=== PATIENT | female | born 1980 | race Caucasian/White ===

== ENCOUNTER → 2016-04-24 | Outpatient (CLI) | payer OTHER ==
[~2016-04-24] MED LIST: LIDO1CRE TOPICAL; LIDO1CRE8 TOPICAL; METO25TA3 PO; MS C30TA PO; OXYC-395 PO; SUMA50TA2 PO; TOPA100T11 PO
--- NOTE | 2016-04-24 10:53 | RADRPT ---
EXAM DATE/TIME: 04/24/2016 10:35 [facility] COMPARISON: No previous studies available for comparison. INDICATIONS : Evaluate for pneumonia, pneumothorax, or communicable disease. Pre op for neurostimulator insertion. MEDICAL HISTORY : Herniated disc. Fibromyalgia. SURGICAL HISTORY : Tubal ligation. Left ACL. ENCOUNTER: Initial ACUITY: 1 day PAIN SCORE: 0/10 LOCATION: chest FINDINGS: PA and lateral views of the chest demonstrate the lungs to be symmetrically aerated without evidence of mass, infiltrate or effusion. The cardiomediastinal contours are unremarkable. Osseous structure s are intact. CONCLUSION: No acute disease. Roger Echeverria MD FACR on April 24, 2016 at 10:51 Board Certified Radiologist. This report was verified electronically.
[2016-04-24 11:05] LABS: AUTOMATED NEUTROPHIL # 3.7 TH/MM3 (1.8-7.7); BASOPHIL % 0.6 % (0.0-2.0); EOSINOPHIL # 0.4 TH/MM3 (0-0.4); EOSINOPHIL % 5.7 % (0.0-4.0); HEMATOCRIT 43.8 % (35.0-46.0); HEMO FLAGS DIFF FINAL; LYMPH % 31.2 % (9.0-44.0); MEAN CELL VOLUME 95.7 FL (80.0-100.0); MEAN CORPUSCULAR HEMOGLOBIN 32.8 PG (27.0-34.0); MEAN CORPUSCULAR HGB CONC 34.3 % (32.0-36.0); MONO % 5.4 % (0.0-8.0); NEUT % 57.1 % (16.0-70.0); PLATELET COUNT 243 TH/MM3 (150-450); RED BLOOD COUNT 4.58 MIL/MM3 (4.00-5.30); RED CELL DISTRIBUTION WIDTH 13.3 % (11.6-17.2); WHITE BLOOD COUNT 6.5 TH/MM3 (4.0-11.0)
[2016-04-24 11:09] LABS: APTT (PATIENT) 27.5 SEC (24.3-30.1); PROTHROMBIN TIME - PATIENT 10.6 SEC (9.8-11.6)
[2016-04-24 11:24] LABS: BLOOD, URINE NEG (NEG); COMMENT (UR) CULT NOT INDICATED; CULTURE IF INDICATED CULT NOT INDICATED; GLUCOSE,URINE NEG (NEG); HYALINE CAST, URINE 1 /lpf (RARE); KETONE, URINE NEG (NEG); MUCUS URINE MANY /lpf (OCC); NITRITE,URINE NEG (NEG); SQUAMOUS EPITHELIAL CELL URINE 2 /hpf (0-5); URINE COLOR YELLOW (YELLW/STRAW)
[2016-04-24 11:30] LABS: ALKALINE PHOSPHATASE 64 U/L (45-117); ALT (GPT) 14 U/L (10-53); ANION GAP 7 MEQ/L (5-15); AST (GOT) 8 U/L (15-37); BICARBONATE 27.2 MEQ/L (21.0-32.0); BLOOD UREA NITROGEN 9 MG/DL (7-18); CHLORIDE 105 MEQ/L (98-107); GLOMERULAR FILTRATION RATE 84 ML/MIN (>89); GLUCOSE,FASTING 89 MG/DL (74-99); POTASSIUM 3.8 MEQ/L (3.5-5.1); SODIUM (NA) 139 MEQ/L (136-145); TOTAL BILIRUBIN ADULT 0.4 MG/DL (0.2-1.0)
== END ==
LOC: CPRE 09:49
PROVIDERS: ATTEND Neurological Surgery
DX: Z01.811 Encounter for preprocedural respiratory examination (principal); Z01.812 Encounter for preprocedural laboratory examination
CPT/HCPCS: 36415; 71020; 80053; 81001; 85025; 85610; 85730; 86850; 86900; 86901

== ENCOUNTER → 2016-04-26 | Day surgery (SDC) | payer OTHER ==
[~2016-04-26] VITALS: Ht 165.1 cm; Wt 78.2 kg
[~2016-04-26] MED LIST changes: +*morphine SULFATE 8 MG/ML PERIprocedure ONLY ONE; +BUPIVACAINE HCL PF 0.5% 30 ML VIAL ONE; +CLINDAMYCIN INJ 900 MG in SODIUM CHLORIDE 0.9% INJ 100 ML IV PRN; +CLINDAMYCIN PHOS 900 MG/6 ML VIAL ONE; +DEXAMETHASONE SOD PHOS 4 MG/ML VIAL ONE; +DO NOT ADM ANY ANTICOAGULANT DRUGS XX PRN; +FAMOTIDINE 20 MG/2 ML VIAL ONE; +GELFOAM SIZE 100 ONE; +INSULIN HUMAN REGULAR 1,000 UNITS/10 ML VIAL SQ PRN; +KETOROLAC TROMETHAMINE 30 MG/ML (IVP) VIAL ONE; +LACTATED RINGER'S 1000 ML INJ 1,000 ML IV ONE; +LACTATED RINGER'S 1000 ML IV SCH; +LEVOFLOXACIN 750 MG PREMIX INJ 150 ML IV ONE; +LIDOCAINE 1%/EPINEPHrine 1:100,000 SOLN 30 ML VIAL ONE; -METO25TA3 PO; +METOPROLOL TARTRATE 25 MG TAB PO PRN; +MIDAZOLAM HCL 5 MG/5 ML VIAL ONE; +NEOSTIGMINE 3 MG/3 ML SYR IV ONE; +ONDANSETRON HCL 4 MG/2 ML VIAL IV PUSH ONE; +ONDANSETRON HCL 4 MG/2 ML VIAL IV PUSH PRN; +PROPOFOL 200 MG/20 ML AMP IV ONE; +SODIUM CHLORID 0.9% 500 ML IV SCH; +SODIUM CHLORIDE 0.9% INJ 100 ML ONE; +THROMBIN (TOPICAL) 5,000 UNIT VIAL ONE; +diphenhydrAMINE HCL 50 MG/ML VIAL ONE; +fentaNYL CITRATE 250 MCG/5 ML AMP ONE
[2016-04-26 06:45] VITALS: BP 117/85; PULSE 80; RESP 18; TEMP 97.8; O2SAT 98
[2016-04-26] MEDS: LEVOFLOXACIN 750 MG/DEXTROSE 150 ML IV SCH ×2 (08:15→08:26)
[2016-04-26 13:00] VITALS: BP 115/77; PULSE 60; RESP 16; TEMP 98; O2SAT 100
--- NOTE | 2016-04-26 14:14 | RADRPT ---
EXAM DATE/TIME: 04/26/2016 09:05 COMPARISON: SPINE THORACIC AP ONLY, July 13, 2009, 7:51. INDICATIONS : T8-9 Stimulator placement. MEDICAL HISTORY : Smoker. SURGICAL HISTORY : Previous stimulator placement and removal. ENCOUNTER: Initial ACUITY: 1 day PAIN SCORE: Non-responsive. LOCATION: thoracic spine. FINDINGS: Epidural stimulator is present in the mid thoracic spine. This is present in the midline. CONCLUSION: 1. Postsurgical changes as above. Cezar Gabriel MD on April 26, 2016 at 14:12 Board Certified Radiologist. This report was verified electronically.
--- NOTE | 2016-04-28 07:02 | MP ---
cc: BHARGAV SOLO MD DATE OF SURGERY: 04/26/2016 PREOPERATIVE DIAGNOSIS: Chronic pain syndrome. POSTOPERATIVE DIAGNOSIS: Chronic pain syndrome. PROCEDURE: T9 laminotomy for implantation of Penta lead at T8-9, implantation of Proclaim internal pulse generator from [employer]. ANESTHESIA General SURGEON Dr. Solo. INDICATIONS The patient is a 35-year-old lady with a history of chronic pain for many years unresponsive to previous back surgery and several years of a maximal medical management including interventional pain therapies. She had greater than 85% relief with a trial of stimulation at T8-9. She was taken to the operating room for implantation of a ophthalmic surgical assistant. TECHNIQUE The patient was brought to the operating room, placed supine on the OR table cart. Anesthesia was induced and the patient intubated orally. She was then turned prone onto a Dennis frame. Her back was prepped with Hibiclens and then with ChloraPrep. This was allowed to dry. The T12, T10, T9 and T8 levels were clearly marked on her back. The IPG site was planned at the posterior mid axillary line on the right side which is her dominant side. The first incision was made at the IPG site and measured 6 cm. Incision was made with a 15 blade and carried down to the subcutaneous fat. The subcutaneous pocket was made approximately a centimeter below the skin surface approximating the size of the IPG. hemostasis and irrigation was used. After injection of local 1% with epinephrine in a one-to-one mixture with Marcaine, the incision was made with a 15 blade at T9 and carried down to the dorsal fascia with the monopolar cautery. A subperiosteal dissection was carried down exposing the laminae of T9 bilaterally. A laminotomy was then performed under the microscope with rongeurs and the 3 mm Midas drill bit. The ligamentum flavum was then opened exposing the dura. The epidural space above T9 was opened with the #3 Leroy with protection from a Penta lead trial. The Penta lead was then easily inserted from T9 up to T8. It was then secured with a 2-0 silk tie to the interspinous ligament at T9-10. It was further secured with Tisseel. The lead was then tunneled to the IPG pocket. It was connected to the Proclaim IPG. The impedance was varied between 200 and 900 ohms. The excess lead was coiled under the IPG and the IPG secured in place in its pocket with dermal closure with 2-0 Vicryl sutures. The IPG skin was closed with 4-0 Monocryl subcuticular suture. This was followed by Dermabond. The spinal muscle was reapproximated with 0 Vicryl suture. The fascia was closed with 0 Vicryl suture. The dermis was reapproximated with 2-0 Vicryl sutures and the skin edges were reapproximated with 4-0 Monocryl followed by Dermabond. Both wounds were dressed sterilely with Telfa and Medipore tape. The patient was then awakened and brought back to the recovery room in a stable condition. ESTIMATED BLOOD LOSS: 50 cc. Bhargav Solo MD YYG/REJI /11:27 AM /6:30 AM ALEJANDRINA
== END | disposition home or self-care (01) ==
LOC: HSDC 06:19
PROVIDERS: ATTEND Neurological Surgery
DX: M51.17 Intervertebral disc disorders with radiculopathy, lumbosacral region (principal); G89.4 Chronic pain syndrome; M79.7 Fibromyalgia; M79.605 Pain in left leg; M54.5 Low back pain
CPT/HCPCS: 00300; 63655; 63685; 72020; 76000; C1767; C1778; J1100; J1200; J1885; J1956; J2250; J2270; J2405; J2710; J3010; J7120

== ENCOUNTER 2016-04-28 05:55 | Emergency (ER) | payer OTHER ==
[~2016-04-28] VITALS: Ht 165.1 cm; Wt 80.0 kg
[~2016-04-28 05:55] MED LIST changes: -*morphine SULFATE 8 MG/ML PERIprocedure ONLY ONE; -BUPIVACAINE HCL PF 0.5% 30 ML VIAL ONE; -CLINDAMYCIN INJ 900 MG in SODIUM CHLORIDE 0.9% INJ 100 ML IV PRN; -CLINDAMYCIN PHOS 900 MG/6 ML VIAL ONE; -DEXAMETHASONE SOD PHOS 4 MG/ML VIAL ONE; -DO NOT ADM ANY ANTICOAGULANT DRUGS XX PRN; -FAMOTIDINE 20 MG/2 ML VIAL ONE; -GELFOAM SIZE 100 ONE; -INSULIN HUMAN REGULAR 1,000 UNITS/10 ML VIAL SQ PRN; -KETOROLAC TROMETHAMINE 30 MG/ML (IVP) VIAL ONE; -LACTATED RINGER'S 1000 ML INJ 1,000 ML IV ONE; -LACTATED RINGER'S 1000 ML IV SCH; -LEVOFLOXACIN 750 MG PREMIX INJ 150 ML IV ONE; -LIDO1CRE TOPICAL; -LIDO1CRE8 TOPICAL; -LIDOCAINE 1%/EPINEPHrine 1:100,000 SOLN 30 ML VIAL ONE; -METOPROLOL TARTRATE 25 MG TAB PO PRN; -MIDAZOLAM HCL 5 MG/5 ML VIAL ONE; -NEOSTIGMINE 3 MG/3 ML SYR IV ONE; -ONDANSETRON HCL 4 MG/2 ML VIAL IV PUSH ONE; -ONDANSETRON HCL 4 MG/2 ML VIAL IV PUSH PRN; -OXYC-395 PO; -PROPOFOL 200 MG/20 ML AMP IV ONE; -SODIUM CHLORID 0.9% 500 ML IV SCH; -SODIUM CHLORIDE 0.9% INJ 100 ML ONE; -THROMBIN (TOPICAL) 5,000 UNIT VIAL ONE; -diphenhydrAMINE HCL 50 MG/ML VIAL ONE; -fentaNYL CITRATE 250 MCG/5 ML AMP ONE
[2016-04-28 06:06] VITALS: BP 107/67; PULSE 97; RESP 18; TEMP 98.7; O2SAT 97
[2016-04-28 06:12] VITALS: O2SAT 97
[2016-04-28] MEDS ORDERED: OXYC-395 PO (06:14)
--- NOTE | 2016-04-28 06:14 | PD ---
HPI Chief Complaint: Syncope/Near-Syncope Time Seen by Provider: 06:08 Travel History International Travel<30 days: No Contact w/Intl Traveler<30days: No Traveled to known affect area: No History of Present Illness HPI Patient is a 35-year-old female presents emergency department for evaluation of syncopal episode. Patient states that she has been taking a medicine to keep her from getting constipated and got up today to go use the bathroom and passed out on the toilet. Patient states that she did not fall off the toilet did not hit her head or neck. Patient states she's been having some back pain ever since she had a spinal stimulator placed last week. Patient denies any fever or abdominal pain nausea or vomiting. Patient was told in the past that she has cardiogenic syncope and follows with Dr. burdick. She states she fired him because they did not get along well. PFSH Past Medical History Cancer: No Cardiovascular Problems: Yes (CARDIOGENIC SYNCOPY) Diabetes: No Diminished Hearing: No Endocrine: No Fibromyalgia: Yes Glaucoma: No Genitourinary: No Hepatitis: No Hiatal Hernia: No Hypertension: No Immune Disorder: Yes (FIBROMYALGIA) Musculoskeletal: Yes (HERNIATED DISK BACK) Neurologic: No Psychiatric: No Respiratory: No Migraines: Yes Thyroid Disease: No : 2 Para: 2 Past Surgical History Abdominal Surgery: No AICD: No Cardiac Surgery: No Ear Surgery: Yes Endocrine Surgery: No Eye Surgery: Yes Genitourinary Surgery: No Gynecologic Surgery: Yes (TUBAL LIGATION) Joint Replacement: No Neurologic Surgery: Yes (spinal stimulator surgery 02/10/09) Oral Surgery: Yes (SINUS SX) Pacemaker: No Thoracic Surgery: No Social History Alcohol Use: Yes (SOCIAL) Tobacco Use: Yes (1/2 PPD) Substance Use: No Allergies-Medications (Allergen,Severity, Reaction): Coded Allergies: Ceclor (Verified Allergy, Severe, THRUSH, 04/28/16) Betadine (Verified Allergy, Intermediate, BLISTERS, 04/28/16) Clindamycin (Verified Adverse Reaction, Mild, ITCHING/BURNING AT IV SITE, 04/28/16) Vancomycin (Verified Adverse Reaction, Mild, PRURITIS, 04/28/16) Uncoded Allergies: MYCINS (Adverse Reaction, Severe, [T. DOES NOT REMEMBER REACTION, 04/24/16) Reported Meds & Prescriptions Reported Meds & Active Scripts Active Reported Oxycodone (Oxycodone HCl) 10 Mg Tab 10 Mg PO Q4H PRN Topamax (Topiramate) 100 Mg Tab 100 Mg PO BID Sumatriptan (Sumatriptan Succinate) 50 Mg Tab 50 Mg PO ONCE PRN If a satisfactory response has not been obtained at 2 hours, a second dose may be administered Ms Contin (Morphine Sulfate) 30 Mg Tab 30 Mg PO BID Review of Systems Except as stated in HPI: all other systems reviewed are Neg Physical Exam Narrative GENERAL: Well-developed well-nourished no apparent distress SKIN: Warm and dry. No sialitis around the wounds on her thoracic back or the spinal stimulator site. HEAD: Atraumatic. Normocephalic. EYES: Pupils equal and round. No scleral icterus. No injection or drainage. ENT: No nasal bleeding or discharge. Mucous membranes pink and moist. NECK: Trachea midline. No JVD. CARDIOVASCULAR: Regular rate and rhythm. No murmur appreciated. 2+ bilateral equal pulses in all 4 extremity's. RESPIRATORY: No accessory muscle use. Clear to auscultation. Breath sounds equal bilaterally. GASTROINTESTINAL: Abdomen soft, non-tender, nondistended. Hepatic and splenic margins not palpable. MUSCULOSKELETAL: No obvious deformities. No clubbing. No cyanosis. No edema. NEUROLOGICAL: Awake and alert. No obvious cranial nerve deficits. Motor grossly within normal limits. Normal speech. PSYCHIATRIC: Appropriate mood and affect; insight and judgment normal. Data Data Last Documented VS Vital Signs Date Time Temp Pulse Resp B/P Pulse Ox O2 Delivery O2 Flow Rate FiO2 04/28/16 09:34 98.4 78 18 154/78 99 04/28/16 07:19 Room Air Orders Electrocardiogram (04/28/16 06:08) Complete Blood Count With Diff (04/28/16 06:08) Comprehensive Metabolic Panel (04/28/16 06:08) Act Partial Throm Time (Ptt) (04/28/16 06:08) Prothrombin Time / Inr (Pt) (04/28/16 06:08) Ecg Monitoring (04/28/16 06:08) Iv Access Insert/Monitor (04/28/16 06:08) Oximetry (04/28/16 06:08) Sodium Chloride 0.9% Flush (Ns Flush) (04/28/16 06:15) D-Dimer (04/28/16 06:08) Oxycodone-Acetamin 5-325 Mg (Percocet (04/28/16 07:15) Ct Pulmonary Angiogram (04/28/16 ) Sodium Chlor 0.9% 1000 Ml Inj (Ns 1000 M (04/28/16 07:30) Ed Urine Pregnancytest Poc (04/28/16 07:31) Iohexol 350 Inj (Omnipaque 350 Inj) (04/28/16 08:04) Labs Laboratory Tests Test 04/28/16 06:20 White Blood Count 13.3 TH/MM3 Red Blood Count 4.47 MIL/MM3 Hemoglobin 14.6 GM/DL Hematocrit 42.9 % Mean Corpuscular Volume 95.9 FL Mean Corpuscular Hemoglobin 32.6 PG Mean Corpuscular Hemoglobin 34.0 % Concent Red Cell Distribution Width 13.2 % Platelet Count 205 TH/MM3 Mean Platelet Volume 10.4 FL Neutrophils (%) (Auto) 71.7 % Lymphocytes (%) (Auto) 20.6 % Monocytes (%) (Auto) 6.0 % Eosinophils (%) (Auto) 1.4 % Basophils (%) (Auto) 0.3 % Neutrophils # (Auto) 9.5 TH/MM3 Lymphocytes # (Auto) 2.7 TH/MM3 Monocytes # (Auto) 0.8 TH/MM3 Eosinophils # (Auto) 0.2 TH/MM3 Basophils # (Auto) 0.0 TH/MM3 CBC Comment DIFF FINAL Differential Comment Prothrombin Time 11.0 SEC Prothromb Time International 1.0 RATIO Ratio Activated Partial 26.0 SEC Thromboplast Time D-Dimer Quantitative (PE/DVT) 0.58 MG/L FEU Sodium Level 141 MEQ/L Potassium Level 3.2 MEQ/L Chloride Level 104 MEQ/L Carbon Dioxide Level 29.4 MEQ/L Anion Gap 8 MEQ/L Blood Urea Nitrogen 4 MG/DL Creatinine 0.74 MG/DL Estimat Glomerular Filtration 90 ML/MIN Rate Random Glucose 78 MG/DL Calcium Level 8.8 MG/DL Total Bilirubin 0.7 MG/DL Aspartate Amino Transf 8 U/L (AST/SGOT) Alanine Aminotransferase 12 U/L (ALT/SGPT) Alkaline Phosphatase 61 U/L Total Protein 6.6 GM/DL Albumin 3.6 GM/DL MDM Medical Decision Making Medical Screen Exam Complete: Yes Emergency Medical Condition: Yes Interpretation(s) EKG shows normal sinus rhythm normal axis and normal R-wave progression. No concerning ST-T changes. Intervals within normal limits. This is a normal EKG. Differential Diagnosis Syncope, PE, cardiogenic syncope unlikely, dehydration, low H&H. Narrative Course Patient was roomed in emergency department, she sat up in the stretcher but needed significant help to do so. Patient states that this is the way this is been for a while for her. States his no increase in her chronic back pain. Denies any saddle anesthesia or problems urinating. Patient did have a syncopal episode today which fairly low risk descriptors of. Happen while she was on the toilet. Labs were ordered including d-dimer and patient was discussed with Dr. vallecillo the follow-up workup and disposition appropriately. Condition: Stable Sinan Vang MD Apr 28, 2016 06:13
[2016-04-28] MEDS ORDERED: SODIUM CHLORIDE 0.9% FLUSH 5 ML FLUSH IVF PRN (06:15)
[2016-04-28 07:01] LABS: AUTOMATED NEUTROPHIL # 9.5 TH/MM3 (1.8-7.7); BASOPHIL % 0.3 % (0.0-2.0); EOSINOPHIL # 0.2 TH/MM3 (0-0.4); EOSINOPHIL % 1.4 % (0.0-4.0); HEMATOCRIT 42.9 % (35.0-46.0); HEMO FLAGS DIFF FINAL; LYMPH % 20.6 % (9.0-44.0); LYMPHOCYTE # 2.7 TH/MM3 (1.0-4.8); MEAN CELL VOLUME 95.9 FL (80.0-100.0); MEAN CORPUSCULAR HEMOGLOBIN 32.6 PG (27.0-34.0); NEUT % 71.7 % (16.0-70.0); PLATELET COUNT 205 TH/MM3 (150-450); RED BLOOD COUNT 4.47 MIL/MM3 (4.00-5.30); RED CELL DISTRIBUTION WIDTH 13.2 % (11.6-17.2); WHITE BLOOD COUNT 13.3 TH/MM3 (4.0-11.0)
[2016-04-28 07:13] LABS: ALT (GPT) 12 U/L (10-53); ANION GAP 8 MEQ/L (5-15); AST (GOT) 8 U/L (15-37); BICARBONATE 29.4 MEQ/L (21.0-32.0); BLOOD UREA NITROGEN 4 MG/DL (7-18); CHLORIDE 104 MEQ/L (98-107); GLOMERULAR FILTRATION RATE 90 ML/MIN (>89); POTASSIUM 3.2 MEQ/L (3.5-5.1); SODIUM (NA) 141 MEQ/L (136-145)
[2016-04-28 07:15] LABS: ALKALINE PHOSPHATASE 61 U/L (45-117); TOTAL BILIRUBIN ADULT 0.7 MG/DL (0.2-1.0)
[2016-04-28] MEDS ORDERED: oxyCODONE/ACETAMINOPHEN 5 MG/325 MG TAB PO ONE (07:15)
[2016-04-28 07:19] VITALS: BP 109/75; PULSE 89; RESP 18; O2SAT 96
[2016-04-28] MEDS ORDERED: SODIUM CHLOR 0.9% 1000 ML INJ 1,000 ML IV ONE (07:30)
--- NOTE | 2016-04-28 07:31 | PD ---
Data Data Last Documented VS Vital Signs Date Time Temp Pulse Resp B/P Pulse Ox O2 Delivery O2 Flow Rate FiO2 04/28/16 07:19 89 18 109/75 96 Room Air 04/28/16 06:06 98.7 Orders Electrocardiogram (04/28/16 06:08) Complete Blood Count With Diff (04/28/16 06:08) Comprehensive Metabolic Panel (04/28/16 06:08) Act Partial Throm Time (Ptt) (04/28/16 06:08) Prothrombin Time / Inr (Pt) (04/28/16 06:08) Ecg Monitoring (04/28/16 06:08) Iv Access Insert/Monitor (04/28/16 06:08) Oximetry (04/28/16 06:08) Sodium Chloride 0.9% Flush (Ns Flush) (04/28/16 06:15) D-Dimer (04/28/16 06:08) Oxycodone-Acetamin 5-325 Mg (Percocet (04/28/16 07:15) Ct Pulmonary Angiogram (04/28/16 ) Sodium Chlor 0.9% 1000 Ml Inj (Ns 1000 M (04/28/16 07:30) Ed Urine Pregnancytest Poc (04/28/16 07:31) Iohexol 350 Inj (Omnipaque 350 Inj) (04/28/16 08:04) Labs Laboratory Tests Test 04/28/16 06:20 White Blood Count 13.3 TH/MM3 Red Blood Count 4.47 MIL/MM3 Hemoglobin 14.6 GM/DL Hematocrit 42.9 % Mean Corpuscular Volume 95.9 FL Mean Corpuscular Hemoglobin 32.6 PG Mean Corpuscular Hemoglobin 34.0 % Concent Red Cell Distribution Width 13.2 % Platelet Count 205 TH/MM3 Mean Platelet Volume 10.4 FL Neutrophils (%) (Auto) 71.7 % Lymphocytes (%) (Auto) 20.6 % Monocytes (%) (Auto) 6.0 % Eosinophils (%) (Auto) 1.4 % Basophils (%) (Auto) 0.3 % Neutrophils # (Auto) 9.5 TH/MM3 Lymphocytes # (Auto) 2.7 TH/MM3 Monocytes # (Auto) 0.8 TH/MM3 Eosinophils # (Auto) 0.2 TH/MM3 Basophils # (Auto) 0.0 TH/MM3 CBC Comment DIFF FINAL Differential Comment Prothrombin Time 11.0 SEC Prothromb Time International 1.0 RATIO Ratio Activated Partial 26.0 SEC Thromboplast Time D-Dimer Quantitative (PE/DVT) 0.58 MG/L FEU Sodium Level 141 MEQ/L Potassium Level 3.2 MEQ/L Chloride Level 104 MEQ/L Carbon Dioxide Level 29.4 MEQ/L Anion Gap 8 MEQ/L Blood Urea Nitrogen 4 MG/DL Creatinine 0.74 MG/DL Estimat Glomerular Filtration 90 ML/MIN Rate Random Glucose 78 MG/DL Calcium Level 8.8 MG/DL Total Bilirubin 0.7 MG/DL Aspartate Amino Transf 8 U/L (AST/SGOT) Alanine Aminotransferase 12 U/L (ALT/SGPT) Alkaline Phosphatase 61 U/L Total Protein 6.6 GM/DL Albumin 3.6 GM/DL [facility] Supervised Visit with WILVER: No Narrative Course 35-year-old woman chronic pain, fibromyalgia, status post recent implantation of a spinal stimulator presents to the emergency Department after syncopal episode while on the toilet associated with some pain in her right costal margin and flank. Her spinal cord stimulator was implanted on the right side. She initially evaluated by Dr. Vang, signed out to me to follow-up on the for results of diagnostic studies. Medical history significant for chronic pain, probably myalgia, chronic opiate use. On repeat exam: Patient's lying in bed. States she has pain on her right flank. Looks well. Studies show: Unremarkable EKG. Unremarkable CBC. Unremarkable CMP. Minimally elevated d- dimer. FINAL: Shows multiple somatic evolving complaints. She is a history of syncope has been previously evaluated. I don't think she has any dangerous disease. Given the elevated d-dimer will check CT pulmonary angiogram, likely discharge. CT pulmonary angiogram shows no PE. Dependent atelectasis. Diagnosis Primary Impression: Syncope Qualified Code: R55 - Vasovagal syncope Patient Instructions: General Instructions Additional Instruction: Continue current medications. Follow up with her surgeon as scheduled. Drink plenty of fluids and stay well-hydrated. Return to the emergency department for any new or worsening symptoms. Med/Other Pt SpecificInfo: Prescription(s) given Disposition: 01 DISCHARGE HOME Condition: Stable Chapito Bergeron MD Apr 28, 2016 07:31
[2016-04-28] MEDS ORDERED: IOHEXOL 350 MG/ML 10 ML VIAL (for RAD DIAG) IV ONE (08:04)
--- NOTE | 2016-04-28 08:20 | RADRPT ---
EXAM DATE/TIME: 04/28/2016 08:02 [facility] COMPARISON: No previous studies available for comparison. INDICATIONS : Recent spinal stimulator surgery two days ago. Left sided chest pain. Syncopal episode. Evaluate for pulmonary embolism. IV CONTRAST: 70 cc Omnipaque 350 (iohexol) IV RADIATION DOSE: 23.02 CTDIvol (mGy) MEDICAL HISTORY : Cardiogenic syncope. SURGICAL HISTORY : Tubal ligation. Spinal stimulator. Orthopedic surgery. ENCOUNTER: Initial ACUITY: 2 days PAIN SCALE: 0/10 LOCATION: Left chest TECHNIQUE: Volumetric scanning of the chest was performed using a pulmonary embolism protocol MIP images were re constructed. Using automated exposure control and adjustment of the mA and/or kV according to patien t size, radiation dose was kept as low as reasonably achievable to obtain optimal diagnostic quality images. FINDINGS: Examination quality mildly degraded by respiratory motion artifact. PULMONARY ARTERIES: No filling defects are seen in the pulmonary arteries through the segmental level. LUNGS: There is airspace opacity in the posterior inferior dependent lungs bilaterally. Linear opacity in th e left upper lobe likely represents subsegmental atelectasis. No pneumothorax is present. PLEURAE: There is no pleural thickening or pleural effusion. MEDIASTINUM: There is good visualization of the great vessels of the middle mediastinum. No evidence of mediastin al or hilar adenopathy/mass. MUSCULOSKELETAL: No acute osseous abnormality is identified. Spinal stimulator leads are present within the posterior spinal canal in the thoracic spine. These are associated with artifact. MISCELLANEOUS: The visualized upper abdominal organs demonstrate no acute abnormality. CONCLUSION: 1. No PE is identified through the segmental level pulmonary arteries. 2. There is dependent air space opacity in the lower lobes bilaterally. Atelectasis or air space cons olidation could have this appearance. Given the location and appearance, dependent atelectasis is fav ored. Derek Olea MD on April 28, 2016 at 8:15 Board Certified Radiologist. This report was verified electronically.
[2016-04-28 09:34] VITALS: BP 154/78; TEMP 98.4
--- NOTE | 2016-04-28 14:30 | EKG ---
Date Performed: 04/28/2016 Time Performed: 06:03:30 PTAGE: 35 years EKG: Sinus rhythm NORMAL ECG Compared to prior tracing no significant change PREVIOUS TRACING 08/31/2013 @10.06.44 DOCTOR: Cipriano Kulkarni Interpretating Date/Time 04/28/2016 14:28:45
[2016-05-06] MEDS ORDERED: LIDO1CRE TOPICAL (16:30)
[2016-05-14] MEDS ORDERED: LIDO1CRE8 TOPICAL (11:00)
== END 2016-04-28 09:20 | disposition home or self-care (01) ==
LOC: NEPC 05:55
DX: R55 Syncope and collapse (principal); M79.7 Fibromyalgia; F17.200 Nicotine dependence, unspecified, uncomplicated; J98.11 Atelectasis
CPT/HCPCS: 71275; 80053; 84703; 85025; 85379; 85610; 85730; 93005; 99284; J7030; Q9967

== ENCOUNTER → 2017-04-03 | Outpatient (CLI) | payer OTHER ==
[~2017-04-03] MED LIST changes: +ADIP37.55 PO; +LIDO1CRE TOPICAL; +LIDO1CRE8 TOPICAL; +OXYC-395 PO; -TOPA100T11 PO; +TOPI100 PO
[2017-04-03 13:47] LABS: HEMATOCRIT 40.3 % (35.0-46.0); HEMOGLOBIN 14.1 GM/DL (11.6-15.3); MEAN CELL VOLUME 96.1 FL (80.0-100.0); MEAN CORPUSCULAR HEMOGLOBIN 33.5 PG (27.0-34.0); MEAN CORPUSCULAR HGB CONC 34.9 % (32.0-36.0); MEAN PLATELET VOLUME 9.4 FL (7.0-11.0); PLATELET COUNT 276 TH/MM3 (150-450); RED CELL DISTRIBUTION WIDTH 13.2 % (11.6-17.2)
[2017-04-03 13:53] LABS: BILIRUBIN, URINE NEG (NEG); BLOOD, URINE NEG (NEG); GLUCOSE,URINE NEG (NEG); KETONE, URINE NEG (NEG); NITRITE,URINE NEG (NEG); SQUAMOUS EPITHELIAL CELL URINE 1 /hpf (0-5); URINE COLOR YELLOW (YELLW/STRAW); URINE LEUKOCYTE ESTERASE SMALL (NEG)
[2017-04-03 14:15] LABS: BICARBONATE 30.4 MEQ/L (21.0-32.0); CREATININE 0.8 MG/DL (0.50-1.00)
== END ==
LOC: CPRE 12:16
PROVIDERS: ATTEND Obstetrics & Gynecology
DX: Z01.812 Encounter for preprocedural laboratory examination (principal); N94.6 Dysmenorrhea, unspecified; N94.10 Unspecified dyspareunia; N92.4 Excessive bleeding in the premenopausal period; R93.8 Abnormal findings on diagnostic imaging of other specified body structures; R33.9 Retention of urine, unspecified
CPT/HCPCS: 36415; 80048; 81001; 85027

== ENCOUNTER 2017-04-09 05:48 | Observation (INO) | payer OTHER ==
[~2017-04-09] VITALS: Ht 162.6 cm; Wt 82.5 kg
[~2017-04-09 05:48] MED LIST changes: -LIDO1CRE TOPICAL; -LIDO1CRE8 TOPICAL; -MS C30TA PO; -OXYC-395 PO; -SUMA50TA2 PO
[2017-04-09] MEDS ORDERED: METOPROLOL TARTRATE 25 MG TAB PO PRN (06:30)
[2017-04-09] MEDS ORDERED: LACTATED RINGER'S 1000 ML IV PRN (06:30)
[2017-04-09] MEDS ORDERED: CHLORHEXIDINE GLUCONATE 2 % 1 PACK (2 CLOTHS) TOPICAL PRN (06:30)
[2017-04-09] MEDS ORDERED: ceFAZolin 2 GM PREMIX 50 ML IV SCH (07:15)
[2017-04-09] MEDS ORDERED: ACETAMINOPHEN 1000 MG/100 ML 100 ML IV ONE (07:41)
[2017-04-09] MEDS ORDERED: ZOLPIDEM TARTRATE 5 MG TAB PO PRN (10:00)
[2017-04-09] MEDS ORDERED: IBUPROFEN 600 MG TAB PO PRN (10:00)
[2017-04-09] MEDS ORDERED: ONDANSETRON HCL 4 MG/2 ML VIAL IVP PRN (10:00)
[2017-04-09] MEDS ORDERED: SODIUM CHLORIDE 0.9% FLUSH 10 ML FLUSH IV FLUSH PRN (10:00)
[2017-04-09] MEDS ORDERED: oxyCODONE/ACETAMINOPHEN 5 MG/325 MG TAB PO PRN ×2 (10:00)
[2017-04-09] MEDS ORDERED: DO NOT ADM ANY ANTICOAGULANT DRUGS PRN (10:07)
[2017-04-09] MEDS ORDERED: MIDAZOLAM HCL 2 MG/2 ML VIAL ONE (10:19)
[2017-04-09] MEDS ORDERED: MORPHINE SULFATE 4 MG/ML INJ ONE (10:19)
[2017-04-09] MEDS ORDERED: *morphine SULFATE 10 MG/ML PERIprocedure ONLY ONE ×2 (10:21→10:38)
[2017-04-09] MEDS ORDERED: *ONDANSETRON 4 MG VIAL PERIprocedural Use ONLY ONE (10:31)
[2017-04-09] MEDS: LACTATED RINGER'S 1000 ML INJ 1,000 ML IV SCH ×2 (10:42→23:13)
[2017-04-09] MEDS ORDERED: DOCUSATE SODIUM 100 MG CAP PO SCH (11:00)
[2017-04-09 11:15] VITALS: BP 114/75; PULSE 70; RESP 16; TEMP 97.6; O2SAT 97
--- NOTE | 2017-04-09 11:31 | MP ---
cc: Jayla CARPENTER MD DATE OF OPERATION April 09, 2017 PREOPERATIVE DIAGNOSIS 1. Menorrhagia. 2. Dysmenorrhea. 3. Deep dyspareunia. POSTOPERATIVE DIAGNOSIS 1. Menorrhagia. 2. Dysmenorrhea. 3. Deep dyspareunia. PROCEDURE Laparoscopic-assisted supracervical hysterectomy, bilateral salpingectomy. ANESTHESIA General endotracheal intubation. SURGEON Jayla Carpenter MD FINDINGS Examination under anesthesia. Cervix was parous without lesions. The uterus was normal size, shape and consistency and freely mobile. The adnexa negative for masses. The laparoscopic exam revealed normal uterus. The tubes were bisected bilaterally. 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 The cervix had anterior fibroma approximately 2 cm. The ovaries were normal. There was a small ovarian cyst on the right which was aspirated and the ovaries were lateral and superior of the cervix at the end of the case. COMPLICATIONS None. COUNTS Counts were correct. ESTIMATED BLOOD LOSS 50 ccs. FLUIDS Crystalloids. CONDITION The patient tolerated the procedure well and went to the recovery room in good condition. INDICATIONS FOR PROCEDURE This is a patient who has been having progressive menorrhagia with severe dysmenorrhea that is debilitating. She is also having deep dyspareunia where the pain lasts days after active intercourse. She was tender on exam and it was felt that a laparoscopic-assisted supracervical hysterectomy may help that. PROCEDURE IN DETAIL The patient was taken to the operating room, identified by name band and verbally given a general anesthetic and placed in dorsal lithotomy position. She was prepped and draped in the usual sterile fashion and a time-out was taken. Once we all agreed, proceeded with the examination under anesthesia and placing the Maxwell catheter. A weighted speculum was placed in the vagina, the anterior lip of the cervix grasped with a single-tooth tenaculum. The cervix was then cannulized with a Hulka clamp for uterine manipulation. Changing our gloves, we went to the umbilical area. A small subumbilical incision was made and a #5 trocar was introduced under direct vision without difficulty. A pneumoperitoneum was created with 3 liters of CO2. Inferior lateral to the umbilicus on the left we put a 10-mm port under direct vision and a 5-mm port on the right for manipulation. At this point we placed her in Trendelenburg, visualized all the internal organs and proceeded with the hysterectomy. The round ligaments were taken down bilaterally and a bladder flap was created with the harmonic 7 scalpel. The mesosalpinx of the fallopian tubes were then taken down with harmonic scalpel and the broad ligament was taken down to the level of the uterine vessels without difficulty. The uterine vessels were skeletonized and taken to the level of the internal cervical os with the harmonic scalpel. Hemostasis was excellent. Once this had been accomplished the uterus blanched nicely. The bladder flap was pushed back a little farther out of harm's way and, using the harmonic scalpel, we transected the cervix without difficulty after removing the Hulka clamp. Once this had been accomplished the Kleppinger forceps was used to burn the endocervix and the cervical bed. Small bleeders were coagulated with the Kleppinger and a large amount of fluid was used to clean the pelvis out. At this point to the morcellator was placed into the 12-mm port and the specimen was morcellated without difficulty. We turned this in for pathologic evaluation, then we cleaned out the gutters and the cul-de-sac with a large amount of fluid and placed a piece of Interceed over the cervical stump to prevent adhesions. At this point and the 10-mm port was removed and the fascia was repaired with a 2-0 Vicryl. The air was released through the second puncture and the laparoscope was removed under direct vision without difficulty. The skin was repaired with a 4-0 Monocryl in a subcuticular manner. At this point all the instruments were removed. She tolerated the procedure well and went to the recovery room in good condition. R. MD DARIEN Hui/FRANCESCA /9:55 AM /10:50 AM
[2017-04-09] MEDS ORDERED: GLYCOPYRROLATE 1 MG/5 ML SYRINGE IV PUSH ONE (12:00)
[2017-04-09] MEDS ORDERED: DEXAMETHASONE SOD PHOS 4 MG/ML VIAL IV ONE (12:00)
[2017-04-09] MEDS ORDERED: ePHEDrine/NS 25 MG/5 ML SYRINGE IV ONE (12:00)
[2017-04-09] MEDS ORDERED: ROCURONIUM INJ 50 MG/5 ML SYRINGE IV PUSH ONE (12:00)
[2017-04-09] MEDS ORDERED: PROPOFOL 200 MG/20 ML AMP IV ONE (12:00)
[2017-04-09] MEDS ORDERED: LIDOCAINE HCL 1% PF 5 ML SYRINGE OTHER ONE (12:00)
[2017-04-09] MEDS ORDERED: LACTATED RINGER'S 1000 ML INJ 1,000 ML IV ONE (12:00)
[2017-04-09] MEDS ORDERED: ONDANSETRON HCL 4 MG/2 ML VIAL IV ONE (12:00)
[2017-04-09] MEDS ORDERED: NEOSTIGMINE 5 MG/5 ML SYRINGE IV PUSH ONE (12:00)
[2017-04-09 17:00] VITALS: BP 116/78; PULSE 81; RESP 15; TEMP 97.8
[2017-04-09 20:00] VITALS: BP 118/68; PULSE 84; RESP 17; TEMP 97.6; O2SAT 93
[2017-04-09] MEDS ORDERED: TOPIRAMATE 100 MG TAB PO SCH (21:00)
[2017-04-09] MEDS ORDERED: SODIUM CHLORIDE 0.9% FLUSH 10 ML FLUSH IV FLUSH SCH (21:00)
[2017-04-09 23:12] VITALS: BP 114/72; PULSE 80; RESP 17; TEMP 97.7
[2017-04-10 04:20] VITALS: BP 94/60; PULSE 72; RESP 16; TEMP 97.8; O2SAT 95
[2017-04-10 05:53] LABS: AUTOMATED NEUTROPHIL # 7.9 TH/MM3 (1.8-7.7); BASOPHIL % 0.3 % (0.0-2.0); EOSINOPHIL # 0.1 TH/MM3 (0-0.4); EOSINOPHIL % 0.8 % (0.0-4.0); HEMATOCRIT 33.7 % (35.0-46.0); HEMOGLOBIN 11.5 GM/DL (11.6-15.3); LYMPH % 20.6 % (9.0-44.0); LYMPHOCYTE # 2.3 TH/MM3 (1.0-4.8); MEAN CELL VOLUME 95.5 FL (80.0-100.0); MEAN CORPUSCULAR HEMOGLOBIN 32.7 PG (27.0-34.0); MEAN CORPUSCULAR HGB CONC 34.2 % (32.0-36.0); MEAN PLATELET VOLUME 8.8 FL (7.0-11.0); MONO % 6.7 % (0.0-8.0); MONOCYTE # 0.7 TH/MM3 (0-0.9); NEUT % 71.6 % (16.0-70.0); PLATELET COUNT 205 TH/MM3 (150-450); RED BLOOD COUNT 3.53 MIL/MM3 (4.00-5.30); RED CELL DISTRIBUTION WIDTH 13.1 % (11.6-17.2)
[2017-04-10 06:39] LABS: BICARBONATE 28.5 MEQ/L (21.0-32.0); CALCIUM 8.5 MG/DL (8.5-10.1); CREATININE 0.65 MG/DL (0.50-1.00)
--- NOTE | 2017-04-10 08:09 | HHI.PR ---
Subjective Remarks Doing well, pain is well controlled, eating well. No chest pain or SOB Lots of trouble with dietary last nite. Objective Vital Signs Vital Signs Date Time Temp Pulse Resp B/P (MAP) Pulse Ox O2 Delivery O2 Flow Rate FiO2 04/10/17 04:20 97.8 72 16 94/60 (71) 95 04/09/17 23:12 97.7 80 17 114/72 (86) 04/09/17 20:00 97.6 84 17 118/68 (85) 93 04/09/17 17:00 97.8 81 15 116/78 (91) 04/09/17 11:15 97.6 70 16 114/75 (88) 97 04/09/17 10:45 97.5 68 20 123/76 (92) 100 Room Air 04/09/17 10:30 76 20 122/75 (91) 100 Room Air 04/09/17 10:15 75 20 119/67 (84) 100 04/09/17 10:07 97.5 86 20 114/68 (83) 100 Nasal Cannula 2 I/O 04/09/17 04/09/17 04/09/17 04/10/17 04/10/17 04/10/17 07:00 15:00 23:00 07:00 15:00 23:00 Intake Total 1000 ml 1915 ml Output Total 125 ml 950 ml 1800 ml Balance 875 ml -950 ml 115 ml Intake IV Total 1915 ml Other 1000 ml Output Urine Total 950 ml 1800 ml Estimated Blood Loss 50 ml Other 75 ml Result Diagram: 04/10/17 0543 04/10/17 0543 Objective Remarks Chest is clear, regular rate and rhythm. Abdomen is soft and non-distended. Incision is clean and dry. Ext no CCE. A/P Assessment and Plan Post Op Day 1 Doing well Will get someone to come talk to her about her problems with the dietary. Home today and return to office in two weeks. Jayla Carpenter MD Apr 10, 2017 08:09
[2017-04-10 09:00] VITALS: BP 119/75; PULSE 66; RESP 16; TEMP 97.9
== END 2017-04-10 09:06 | disposition home or self-care (01) ==
LOC: HSDC 05:48 → H1EA 11:25
PROVIDERS: ADMIT Obstetrics & Gynecology; ATTEND Obstetrics & Gynecology
DX: N92.0 Excessive and frequent menstruation with regular cycle (principal); N94.6 Dysmenorrhea, unspecified; N94.12 Deep dyspareunia; N83.8 Other noninflammatory disorders of ovary, fallopian tube and broad ligament; R93.8 Abnormal findings on diagnostic imaging of other specified body structures; M79.7 Fibromyalgia; F17.200 Nicotine dependence, unspecified, uncomplicated
CPT/HCPCS: 00840; 58542; 80048; 85025; 88307; 94150; C1765; G0378; J0131; J0690; J1100; J2250; J2270; J2405; J2710; J3010; J7120